=== PATIENT | male | born 1960 | race Caucasian/White ===

== ENCOUNTER 2023-09-11 07:42 | Inpatient (IN) | payer MEDICARE, OTHER ==
[~2023-09-11] VITALS: Ht 177.8 cm; Wt 118.2 kg
[~2023-09-11 07:42] MED LIST: ALEN35TA41 PO; ATOR10TA PO; BUPIVACAINE HCL/PF 0.5% 30 ML VIAL ONE; BUPIVACAINE LIPOSOME/PF 1.3%-13.3MG/ML SUSP 20 ML VIAL INJ ONE; FentaNYL CITRATE PF 100 MCG/2 ML VIAL ONE; LOSA1TAB40 PO; MIDAZOLAM HCL 2 MG/2 ML VIAL ONE; RINGERS SOLUTION,LACTATED 1,000 ML IV ONE; SODIUM CL IRRIG SOLN BAG 3,000 ML IRRIG ONE; SPIR-37 PO; VANCOMYCIN HCL 1 GM VIAL ONE; ZOLP-280 PO
[2023-09-11] MEDS: ETHYL ALCOHOL 62% ANTISEPTIC NASAL SANITIZER 0.6 ML AMPUL NASAL ONE (08:23)
[2023-09-11] MEDS: CHLORHEXIDINE GLUCONATE 2% TOWELETTE [2'S/6'S] TP ONE (08:24)
[2023-09-11] MEDS ORDERED: ASPI-1450 PO (09:27)
[2023-09-11] MEDS ORDERED: SENN-376 PO (09:27)
[2023-09-11] MEDS ORDERED: LOSA-30 PO (09:27)
[2023-09-11] MEDS ORDERED: AMLO-257 PO (09:27)
[2023-09-11] MEDS ORDERED: CALC260T16 PO (09:27)
[2023-09-11] MEDS ORDERED: TRAZ-257 PO (09:27)
[2023-09-11] MEDS ORDERED: CYAN250014 PO (09:27)
[2023-09-11] MEDS ORDERED: CHOL25TA4 PO (09:28)
[2023-09-11] MEDS: RINGERS SOLUTION,LACTATED 1,000 ML IV ONE (09:34)
== END 2023-09-11 17:10 | disposition home or self-care (01) | DRG 554 ==
LOC: 5N 07:42 → UNDODISIN 16:00
PROVIDERS: ADMIT Orthopaedic Surgery; ATTEND Orthopaedic Surgery
DX: M17.12 Unilateral primary osteoarthritis, left knee (principal); S30.821A Blister (nonthermal) of abdominal wall, initial encounter; L98.499 Non-pressure chronic ulcer of skin of other sites with unspecified severity; I10 Essential (primary) hypertension; Z96.651 Presence of right artificial knee joint; X58.XXXA Exposure to other specified factors, initial encounter; Y93.89 Activity, other specified; Y92.89 Other specified places as the place of occurrence of the external cause; Y99.8 Other external cause status; Z79.899 Other long term (current) drug therapy; Z90.49 Acquired absence of other specified parts of digestive tract
CPT/HCPCS: 87081; C9290; J2250; J3010; J3370; J3490; J7120